=== PATIENT | female | born 1945 | race Asian ===

== ENCOUNTER 2019-12-10 11:24 | Day surgery (SDC) | payer OTHER ==
[2019-12-08 10:50] LABS: PLATELET COUNT 294 K/uL (152-353)
[~2019-12-10] VITALS: Ht 30.5 cm; Wt 0.5 kg
== END 2019-12-10 13:36 | disposition home or self-care (01) ==
LOC: OR 11:24
PROVIDERS: Internal Medicine Gastroenterology
PROC: 0DJD8ZZ Inspection of Lower Intestinal Tract, Via Natural or Artificial Opening Endoscopic (ICD-10-PCS; principal; 2019-12-10)
DX: K57.30 Diverticulosis of large intestine without perforation or abscess without bleeding (principal); K64.8 Other hemorrhoids; Z80.0 Family history of malignant neoplasm of digestive organs; Z86.010 Personal history of colon polyps
CPT/HCPCS: 80053; 85027; J2704; J7120